=== PATIENT | female | born 1950 | race African-American/Black ===

== ENCOUNTER 2021-04-28 10:02 | Outpatient (CLI) | payer MEDICARE, OTHER, SELFPAY ==
[2021-04-28 10:31] LABS: Anion Gap 8 mmol/L (8-16); Blood Urea Nitrogen 15 mg/dL (7-17); Calcium 9.7 mg/dL (8.4-10.2); Carbon Dioxide 34 mmol/L (22-30); Chloride 95 mmol/L (98-107); Estimated Glomerular Filt Rate > 60; Glucose 129 mg/dL (65-110); Potassium 3.5 mmol/L (3.4-5.0); Sodium 137 mmol/L (137-145)
== END 2021-04-28 10:03 | disposition home or self-care (01) ==
LOC: ANHSURGERY 10:08
PROVIDERS: Anesthesiology; Visit Provider Urology
DX: Z01.818 Encounter for other preprocedural examination (principal); Z51.81 Encounter for therapeutic drug level monitoring
CPT/HCPCS: 36415; 80048

== ENCOUNTER 2021-04-30 00:12 | Day surgery (SDC) | payer MEDICARE, OTHER, SELFPAY ==
[2021-04-27 13:04] VITALS: BMI 33.5
--- NOTE | 2021-04-27 13:46 | PC.NURSE ---
Report to the Outpatient Waiting Room, entrance under the green pavilion located off [facility], at time __6:00am on date __04/30/21 . OR Time: ____7:30am____. - You and your visitor will be asked a series of questions to screen for COVID 19 for your protection. - A mask is required within the hospital. - Only one visitor is allowed at this time. Patient visitors will be guided where to wait when not with patient. Preoperative COVID Testing Requirements: No COVID Test needed if: (proof is required; if not received patient will have Rapid Test prior to entry) - Patient has received COVID Vaccine at least 14 days prior to procedure date or - Patient has positive COVID test result within last 90 days of surgery date. COVID Test needed if above criteria is not met If not COVID vaccinated a COVID test must be conducted within 72 hours of surgery and patient is asked to isolate self from time of testing until procedure. You will go to the [facility] for your COVID testing. The [facility] Testing site is located at the corner of [address] [facility]. You will only be called if COVID results are positive and your surgeon may reschedule your elective surgery date. Patients may have clear liquids (water, carbonated beverages, clear teas, apple juice) until 3 hours prior to surgery with a maximum of 20 ounces. - No food from midnight until time of surgery - Infants may have breast milk until 4 hours before surgery, infant formula 6 hours prior to surgery. - Children will be allowed to drink immediately following surgery. If applicable, please bring a bottle or sippy cup to assist with drinking. Juice, water, soda, and popsicles are readily available. For infants on formula, please bring formula the day of surgery. Pacifiers are allowed. Take the following medications with a SIP of water the morning of surgery: ___GABAPENTIN, METOPROLOL Medications to discontinue per physician ASPIRIN & CELEBREX- [address] DUBON-04/23/21___ALL VITAMINS/SUPPLEMENTS 3 DAYS PRE-OP-04/26/21 Date to take last dose Please no make-up, nail surinamese, hairspray, perfume, deodorant, or body powder the day of surgery. No jewelry (including any body piercings) or valuables the day of surgery, leave them at home. Please take a shower or bath the night before, or the morning of, surgery with an antibacterial soap. Wear comfortable, loose fitting clothing. Children are encouraged to wear pajamas. - Jewelry must be removed prior to entering the operating room. Rings and piercings that are not removed may be cut off. - The hospital will not accept responsibility for valuables. - Please leave all valuables, including medications, at home the day of surgery. If you are going home after surgery, a licensed armored truck driver must drive you home. - NO public transportation without another adult. - We recommend that an adult stay with you for 24 hours following discharge. - We also recommend that you do not drive, make important decision, drink alcoholic beverages, or take any drugs that were not prescribed by your health care provider for at least 24 hours after your discharge time. For Pediatric surgeries, we recommend two adults accompany the child home (only one inside the building at this time). Follow any additional instructions given to you from your surgeon. Telephone instructions given to ___PATIENT and asked if any additional questions and then verbalized understanding. Patient advised to call surgeon office or pre surgery nurse liaison [phone] if any additional questions.
--- NOTE | 2021-04-29 05:05 | PM.IMHP ---
H&P: HPI History of Present Illness Date/Time: 04/29/21 05:05 70 yo with Urge incontinence. >50% Improved with INterStim trial. Here today for permanent implantation Chief Complaint: UUI Review of Systems Review of Systems: All systems reviewed & are unremarkable except as noted in HPI and below PMFSH Social History Social History Smoking status: Never smoker Alcohol intake: current Drinks per week: 1 Substance use: never Additional living arrangements comments: SPOUSE Spiritual care concerns: No Meds Home Medications and Allergies Home Medications Medication Instructions Recorded Confirmed Type aspirin [Aspirin Low Dose] 81 mg PO DAILY 04/27/21 04/27/21 History biotin 2,500 mcg PO DAILY 04/27/21 04/27/21 History celecoxib 200 mg PO QAM 04/27/21 04/27/21 History cetirizine 10 mg PO DAILY 04/27/21 04/27/21 History cyanocobalamin (vitamin B-12) 2,500 mcg PO DAILY 04/27/21 04/27/21 History cyclosporine [Restasis] 1 drp EACH EYE BID 04/27/21 04/27/21 History desipramine 100 mg PO HS 04/27/21 04/27/21 History fluticasone propionate 1 spray INTRANASAL BID 04/27/21 04/27/21 History gabapentin 600 mg PO TID 04/27/21 04/27/21 History hydrochlorothiazide 25 mg PO QAM 04/27/21 04/27/21 History krill oil 500 mg PO DAILY 04/27/21 04/27/21 History metoprolol succinate 100 mg PO QAM 04/27/21 04/27/21 History montelukast 10 mg PO HS 04/27/21 04/27/21 History pantoprazole 40 mg PO DAILY 04/27/21 04/27/21 History simvastatin 40 mg PO DAILY 04/27/21 04/27/21 History Allergies Allergy/AdvReac Type Severity Reaction Status Date / Time tetracycline Allergy Rash Verified 04/27/21 13:02 ibuprofen AdvReac HEART Verified 04/27/21 13:02 RACING Exam Narrative: NAD Normal breathing A+O x3 neuro normal Assessment and Plan Assessment and plan (1) Urge incontinence: Code(s): N39.41 - Urge incontinence Status: Acute Assessment and Plan: Neurostimulator/InterStim implant
--- NOTE | ~2021-04-30 | XR_ITS ---
EXAMINATION: FLUORO NEUROSTIM INSERT < 1HR DATE: 04/30/2021 07:53 INDICATION: Interstim phase 2 TECHNIQUE: Frontal and lateral fluoroscopic images of the sacrum were obtained. The amount of fluoros copy time used during this procedure was 0.5 minutes. COMPARISON: None. FINDINGS: Distal tip of an Interstim lead extends from posterior to anterior through the left S3 neur al foramen. IMPRESSION: 1. Interstim lead extends through the left S3 neural foramen. See procedure note for further detail. Reviewed, dictated and finalized at location A. NSE ANALYST IMPRESSION: 1. Interstim lead extends through the left S3 neural foramen. See procedure not e for further detail.
[2021-04-30 06:34] VITALS: BP 133/73; PULSE 86; RESP 16; TEMP 36.3; O2SAT 100
--- NOTE | 2021-04-30 06:49 | P.PNAN_ITS ---
Anes - Initial Pre Proc Eval Procedure: Operation Date: 04/30/21 07:30 Proposed Procedures p Neurostimulator Implant Phase Two - Leonides Quezada MD Date/Time: 04/30/21 06:49 Surgeon: Leonides Quezada MD Pre Op Diagnosis: sensory urge incont, over active bladder Patient Data Age: 70 Gender: F Height: 1.52 m Weight: 78 kg Allergies Allergy/AdvReac Type Severity Reaction Status Date / Time tetracycline Allergy Rash Verified 04/30/21 06:38 ibuprofen AdvReac HEART Verified 04/30/21 06:38 RACING Home Medications Medication Instructions Recorded Confirmed Type aspirin [Aspirin Low Dose] 81 mg PO DAILY 04/27/21 04/30/21 History biotin 2,500 mcg PO DAILY 04/27/21 04/30/21 History celecoxib 200 mg PO QAM 04/27/21 04/30/21 History cetirizine 10 mg PO DAILY 04/27/21 04/30/21 History cyanocobalamin (vitamin B-12) 2,500 mcg PO DAILY 04/27/21 04/30/21 History cyclosporine [Restasis] 1 drp EACH EYE BID 04/27/21 04/27/21 History desipramine 100 mg PO HS 04/27/21 04/30/21 History fluticasone propionate 1 spray INTRANASAL BID 04/27/21 04/30/21 History gabapentin 600 mg PO TID 04/27/21 04/30/21 History hydrochlorothiazide 25 mg PO QAM 04/27/21 04/30/21 History krill oil 500 mg PO DAILY 04/27/21 04/30/21 History metoprolol succinate 100 mg PO QAM 04/27/21 04/30/21 History montelukast 10 mg PO HS 04/27/21 04/30/21 History pantoprazole 40 mg PO DAILY 04/27/21 04/30/21 History simvastatin 40 mg PO DAILY 04/27/21 04/30/21 History Patient hx anesthesia problems: none Family hx anesthesia problems: none Results Review: All pre-operative results and documents have been reviewed as part of the pre-operative evaluation. [facility] Past Medical History Medical History (Updated 04/30/21 @ 06:50 by Brock Lema DO) CAD (coronary artery disease) CVA (cerebral vascular accident) 1993, SLIGHT RIGHT FACIAL DROOP History of heart attack Hyperlipidemia Hypertension Surgical History Surgical History (Updated 04/30/21 @ 06:50 by Brock Lema DO) History of coronary artery stent placement History of total knee replacement Social History Social History Smoking status: Never smoker Alcohol intake: current Drinks per week: 1 Substance use: never Living arrangements: with family Additional living arrangements comments: SPOUSE Spiritual care concerns: No Anes - Eval Final PreProcedure Day of Procedure 04/30/21 06:49 Patient weight: obese Heart: regular rate and rhythm Lungs: clear to auscultation and normal air movement Airway: Mallampati scale class II Neurological: alert and oriented Last oral intake: >/= 8 hours ASA classification: III Emergent: no Anesthetic plan: proceed Anesthesia type and monitoring: general GIVS and standard monitoring Results Review: All pre-operative results and documents have been reviewed as part of the pre-operative evaluation. Informed Consent: The patient's anesthetic plan and its attendant risks and benefits were discussed with the patient/family/POA. Questions were solicited and answers provided to the satisfaction of the patient/family/POA.
[2021-04-30] MEDS: LACTATED RINGERS 1,000 ML 30 ML IV CONT (06:52)
--- NOTE | 2021-04-30 07:10 | WPDHPUPDATE1 ---
History and Physical Update Update Date/Time: 04/30/21 07:10 History and Physical has been reviewed, including an updated exam of the patient. There are NO changes in the patient's condition. Risks, benefits, and alternatives have been discussed and questions answered. Patient agrees to proceed with procedure.
[2021-04-30] MEDS: ceFAZolin 2 GM/D5W 50 ML 2 GM/50 ML BAG IVPB (07:21)
[2021-04-30] MEDS: BUPIVACAINE/EPINEPHRINE 0.25% 10 ML VIAL 30 ML INFILTRATE (07:55)
[2021-04-30 08:05] VITALS: BP 101/64; PULSE 81; RESP 14; O2SAT 97
--- NOTE | 2021-04-30 08:09 | W.PM.PROC2 ---
Procedure Note - Detailed Date of Procedure 04/30/21 Pre-op Diagnosis sensory urge incont, over active bladder Post-op Diagnosis same Procedure Performed Implantation of sacral lead 58596 Fluoroscopic guidance for needle placement 83351-64 Placement of implantable pulse generator 39304 Complex neurostimulator programming impedance check [id number] Surgeon Leonides Quezada MD Anesthesia MAC and local Indications This is a patient with refractory urge urinary incontinence. They have undergone a successful trial of sacral nerve stimulation. They present today for permanent implantation. They understand the risks of bleeding, infection, decreased efficacy, need for revision and battery changes. They agree to proceed Findings See dictated Description of Procedure They were correctly identified and informed consent was obtained. There brought to the operating room. There placed in the prone position. There given appropriate perioperative antibiotics. A time-out performed. I used fluoroscopy to hasmukh out my sacral landmarks in the AP and the lateral orientation. I anesthetized the skin. I entered the S3 foramen. I monitored the needle with fluoroscopy. I got appropriate Elena and toe response at a low threshold. I made a skin britt. I placed a stylet. I placed the lead introducer sheath. I thinned placed and deployed to my lead. I got appropriate responses again at a low threshold. I marked out the site of the pulse generator. I anesthetized the skin and made that incision. I created a subcutaneous pocket to house the pulse generator. I tunneled the lead towards this pocket. Appropriate connections were made between the lead and the battery. It was placed in the pocket. It was programmed and impedances were checked and found to be normal. I irrigated out all wounds. I ensured hemostasis. I closed the subcutaneous tissues with 2 Vicryl. I closed the skin with 4 0 Vicryl. Glue was applied. There then awakened and transferred to the PACU in stable condition. Implants Sacral neurostimulator Estimated Blood Loss 5 Drains No Packing No Pathology none sent Condition stable Disposition PACU
[2021-04-30 08:25] VITALS: BP 133/74; PULSE 78; RESP 16
[2021-04-30 09:00] VITALS: BP 123/74; PULSE 74; RESP 16
[2021-04-30 09:30] VITALS: BP 129/74; PULSE 78; RESP 16
[2021-04-30] MEDS: oxyCODONE HCL (*CRX) 5 MG TAB IR PO (09:41)
== END 2021-04-30 09:42 | disposition home or self-care (01) ==
PROVIDERS: Visit Provider Urology
PROC: (CPT 64581; principal; 2021-04-30 07:30)
DX: N39.41 Urge incontinence (principal); N32.81 Overactive bladder; I10 Essential (primary) hypertension; E78.5 Hyperlipidemia, unspecified; I25.2 Old myocardial infarction; I25.10 Atherosclerotic heart disease of native coronary artery without angina pectoris; Z86.73 Personal history of transient ischemic attack (TIA), and cerebral infarction without residual deficits; Z79.82 Long term (current) use of aspirin; Z95.5 Presence of coronary angioplasty implant and graft; E66.9 Obesity, unspecified; Z68.33 Body mass index [BMI] 33.0-33.9, adult
CPT/HCPCS: 64581; 64590; A9270; C1767; C1778; C1787; J0690; J1100; J2370; J2405; J2704; J3010; J7120